=== PATIENT | female | born 1955 | race Caucasian/White ===

== ENCOUNTER → 2023-12-14 07:47 | Outpatient (REF) | payer MEDICARE, OTHER, SELFPAY | LOC: HWRAD 07:47 | PROVIDERS: ATTENDING PHYSICIAN Physician Assistant | DX: Z12.31 Encounter for screening mammogram for malignant neoplasm of breast (principal); Z78.0 Asymptomatic menopausal state | CPT/HCPCS: 77063; 77067; 77080 ==

== ENCOUNTER → 2024-08-22 06:42 | Outpatient (REF) | payer MEDICARE, OTHER, SELFPAY | LOC: PAVMRI 06:42 | PROVIDERS: ATTENDING PHYSICIAN Physician Assistant | DX: M25.561 Pain in right knee (principal); M23.200 Derangement of unspecified lateral meniscus due to old tear or injury, right knee; M23.006 Cystic meniscus, unspecified meniscus, right knee | CPT/HCPCS: 73721 ==

== ENCOUNTER → 2025-02-20 06:41 | Outpatient (REF) | payer MEDICARE, OTHER, SELFPAY ==
[2025-02-20 10:04] LABS: % Basophils 1.7 % (0-2); % Eosinophils 3.2 % (0-6); % Immature Granulocytes 0.2 % (0-0.5); % Lymphocytes 36.7 % (20.5-51.1); % Monocytes 11.2 % (1.7-9.3); Absolute Basophils 0.1 10^3/uL (0-0.2); Absolute Eosinophils 0.2 10^3/uL (0-0.7); Absolute Lymphocytes 2.2 10^3/uL (1.2-3.4); Absolute Monocytes 0.7 10^3/uL (0.1-0.6); Absolute Neutrophils 2.8 10^3/uL (1.4-6.5); Hematocrit 41.3 % (37.0-47.0); Hemoglobin 13.5 g/dL (12.0-16.0); Mean Corp Hgb Conc. 32.7 g/dL (33.0-37.0); Mean Corpuscular Hgb 29.7 pg (27.0-31.0); Mean Platelet Volume 10.6 fL (7.4-10.4); Nucleated Red Blood Cells % 0 %; Platelet Count 228 10^3/uL (130-400); Red Blood Cell Count 4.54 10^6/uL (4.20-5.40); Red Cell Dist. Width 13.2 % (11.5-14.5)
[2025-02-20 10:17] LABS: ALT (SGPT) 22 U/L (0-35); AST (SGOT) 31 U/L (14-36); Albumin 4.7 g/dl (3.5-5.0); Alkaline Phosphatase 65 U/L (38-126); Blood Urea Nitrogen 22 mg/dl (7-17); Calcium 9.4 mg/dl (8.4-10.2); Carbon Dioxide 28 mmol/L (22-30); Chloride 108 mmol/L (98-107); Glucose 91 mg/dl (70-99); HDL Cholesterol 90 mg/dl; LDL Cholesterol, Calculated 121 mg/dl; Potassium 4.4 mmol/L (3.5-5.1); Sodium 142 mmol/L (135-145); Total Bilirubin 0.5 mg/dl (0.2-1.3); Total Cholesterol 225 mg/dl (50-199); Total Protein 7.5 g/dl (6.3-8.2); Triglyceride 70 mg/dl (10-149); Very Low Density Lipoprotein 14 mg/dl (0-30); eGFR > 60.00
== END ==
LOC: HWWDC 06:41
PROVIDERS: ATTENDING PHYSICIAN Physician Assistant
DX: Z12.31 Encounter for screening mammogram for malignant neoplasm of breast (principal); M25.561 Pain in right knee; M23.200 Derangement of unspecified lateral meniscus due to old tear or injury, right knee; E78.00 Pure hypercholesterolemia, unspecified; M23.006 Cystic meniscus, unspecified meniscus, right knee; H25.9 Unspecified age-related cataract
CPT/HCPCS: 36415; 80053; 80061; 85025

== ENCOUNTER → 2025-07-02 07:16 | Outpatient (REF) | payer MEDICARE, SELFPAY | LOC: HWLAB 07:16 | PROVIDERS: ATTENDING PHYSICIAN Internal Medicine; FAMILY PHYSICIAN Physician Assistant | DX: K52.9 Noninfective gastroenteritis and colitis, unspecified (principal) | CPT/HCPCS: 36415; 83993; 87045; 87046; 87077; 87324; 87427; 87449; 89055 ==